=== PATIENT | female | born 1935 | race African-American/Black ===

== ENCOUNTER 2021-05-05 18:51 | Inpatient (IN) | payer BC, MEDICARE ==
[~2021-05-05] VITALS: Ht 170.2 cm; Wt 57.6 kg
[2021-05-05 19:24] LABS: EOSINOPHILS % 1.6 % (0.0-5.0); HEMATOCRIT. 32.8 % (36.0-48.0); HEMOGLOBIN. 11.6 g/dL (12.0-16.0); LYMPHOCYTES % 26.2 % (20.0-50.0); MEAN CORPUSCULAR HEMOGLOBIN 33.4 pg (28.0-32.0); MEAN CORPUSCULAR VOLUME 94.8 fL (81.0-99.0); MEAN PLATELET VOLUME 9.9 fl (7.4-10.4); MONOCYTES % 9.8 % (2.0-8.0); NEUTROPHILS % 59.4 % (40.0-76.0); PLATELET 412 x1000/uL (130-400); RED BLOOD CELL COUNT 3.46 mill/uL (4.2-5.4)
[2021-05-05 21:12] LABS: CHLORIDE 109 mEq/L (98-107)
[2021-05-05 21:13] LABS: PROTHROMBIN TIME 10.6 sec (9.6-11.0)
[2021-05-05] MEDS ORDERED: ASPIRIN 325MG EC TABLET PO ONE (21:15)
[2021-05-05 21:18] LABS: LDL CHOLESTEROL 147 mg/dL (5-100)
[2021-05-05] MEDS ORDERED: IOHEXOL-350 100 ML BOTTLE ONE (22:14)
[2021-05-06] VITALS (8 sets, daily range): BP systolic 97–147; BP diastolic 54–78
[2021-05-06] MEDS ORDERED: ZOLPIDEM TARTRATE 5MG TABLET PO PRN
[2021-05-06] MEDS ORDERED: NITROGLYCERIN 0.4MG TABLET SL SL PRN
[2021-05-06] MEDS ORDERED: ACETAMINOPHEN 325MG TABLET PO PRN ×2
[2021-05-06] MEDS ORDERED: CLONIDINE 0.1MG TABLET PO PRN
[2021-05-06] MEDS ORDERED: TRAMADOL 50MG TABLET PO PRN
[2021-05-06] MEDS ORDERED: IPRATROPIUM/ALBUTEROL 0.5-3(2.5)MG/3ML NEB NEB PRN
[2021-05-06] MEDS ORDERED: DOCUSATE SODIUM 100MG CAPSULE PO PRN
[2021-05-06] MEDS ORDERED: GUAIFENESIN 200MG/10ML SUGAR FREE UDC PO PRN
[2021-05-06] MEDS ORDERED: ONDANSETRON HCL 4MG/2ML INJ IV PRN
[2021-05-06] MEDS ORDERED: MAGNESIUM/ALUMINUM HYDROXIDE/SIMETHICONE 30ML UDC PO PRN
[2021-05-06 00:35] LABS: T4 FREE 0.86 ng/dL (0.76-1.46)
[2021-05-06 01:08] LABS: FOLIC ACID (FOLATE) SERUM >20 ng/mL ng/mL (>5.38)
[2021-05-06 01:25] LABS: VITAMIN B12 SERUM 1567 pg/mL (211-911)
[2021-05-06] MEDS ORDERED: XALAO EACHEYE (06:00)
[2021-05-06] MEDS ORDERED: BRIM.2 EACHEYE (06:00)
[2021-05-06] MEDS ORDERED: DORZ10DR8 EACHEYE (06:00)
[2021-05-06 06:52] LABS: EOSINOPHILS % 2.2 % (0.0-5.0); HEMOGLOBIN. 11.1 g/dL (12.0-16.0); MEAN CORPUSCULAR HEMOGLOBIN 33.4 pg (28.0-32.0); MEAN CORPUSCULAR VOLUME 96.7 fL (81.0-99.0); MEAN PLATELET VOLUME 9.7 fl (7.4-10.4); MONOCYTES % 10.1 % (2.0-8.0); NEUTROPHILS % 53.7 % (40.0-76.0); PLATELET 238 x1000/uL (130-400); RED BLOOD CELL COUNT 3.31 mill/uL (4.2-5.4); RED CELL DISTRIBUTION WIDTH 15.8 % (11.6-14.6)
[2021-05-06] MEDS: BLOOD SUGAR DIAGNOSTIC STRIP TEST SCH ×4 (07:20→21:10)
[2021-05-06 07:42] LABS: CHLORIDE 109 mEq/L (98-107)
[2021-05-06 07:55] LABS: CREATINE KINASE 101 IU/L (26-192); CREATINE KINASE MB FRACTION 1.3 ng/mL (0.5-3.6); PHOSPHORUS 3.7 mg/dL (2.5-4.9)
[2021-05-06 08:19] LABS: PROTHROMBIN TIME 10.8 sec (9.6-11.0)
[2021-05-06 08:59] LABS: BG BASE EXCESS 2.7 mmol/L (-2.0-2.0); BG CARBOXYHEMOGLOBIN 0.3 % (0.5-1.5); BG DEOXYHEMOGLOBIN 2.3 % (0.0-5.0); BG FRACTION INSPIRED OXYGEN 21; BG HCO3 ACT 27.1 mmol/L (22.0-26.0); BG METHEMOGLOBIN 0.3 % (0.0-1.5); BG OXYGEN SATURATION 97.7 % (92.0-98.5); BG OXYHEMOGLOBIN 97.1 % (94.0-97.0); BG PCO2 41.2 mmHg (35.0-45.0); BG PH 7.436 (7.350-7.450); BG PO2 109.4 mmHg (75.0-100.0); BG SAMPLE SITE LEFT RADIAL; BG TOTAL HEMOGLOBIN 10.7 g/dL (12.0-18.0); BG VENT MODE ROOM AIR
[2021-05-06 09:08] LABS: LDL CHOLESTEROL 138 mg/dL (5-100)
[2021-05-06 09:09] LABS: HDL CHOLESTEROL 48 mg/dL (40-59)
[2021-05-06] MEDS: ASPIRIN 325MG EC TABLET PO SCH (10:02)
[2021-05-06] MEDS: ENOXAPARIN 40MG/0.4ML SYR SUBCUT SCH (10:02)
[2021-05-06] MEDS: FAMOTIDINE 20MG TABLET PO SCH (10:04)
[2021-05-06] MEDS: KETOROLAC 15MG/ML VIAL IV PRN ×2 (10:04→10:23)
[2021-05-06 16:47] LABS: CREATINE KINASE 111 IU/L (26-192)
[2021-05-06 16:48] LABS: CREATINE KINASE MB FRACTION 1.5 ng/mL (0.5-3.6)
[2021-05-07] VITALS: BP 129/62
[2021-05-07 04:00] VITALS: BP 136/74
[2021-05-07] MEDS: BLOOD SUGAR DIAGNOSTIC STRIP TEST SCH ×3 (07:20→20:34)
[2021-05-07 07:51] VITALS: BP 111/53
[2021-05-07] MEDS: FAMOTIDINE 20MG TABLET PO SCH (09:03)
[2021-05-07] MEDS: ASPIRIN 325MG EC TABLET PO SCH (09:03)
[2021-05-07] MEDS: ENOXAPARIN 40MG/0.4ML SYR SUBCUT SCH (09:04)
[2021-05-07] MEDS: EZETIMIBE 10MG TABLET PO SCH (14:33)
[2021-05-07 20:14] VITALS: BP 151/73
[2021-05-08 00:22] VITALS: BP 127/61
[2021-05-08 04:00] VITALS: BP 144/49
[2021-05-08] MEDS: BLOOD SUGAR DIAGNOSTIC STRIP TEST SCH (06:25)
[2021-05-08 08:00] VITALS: BP 133/61
[2021-05-08 08:04] LABS: BG BASE EXCESS 4.2 mmol/L (-2.0-2.0); BG CARBOXYHEMOGLOBIN 0.3 % (0.5-1.5); BG DEOXYHEMOGLOBIN 2.6 % (0.0-5.0); BG FRACTION INSPIRED OXYGEN 21; BG HCO3 ACT 28.5 mmol/L (22.0-26.0); BG METHEMOGLOBIN 0.1 % (0.0-1.5); BG OXYGEN SATURATION 97.4 % (92.0-98.5); BG PCO2 41.6 mmHg (35.0-45.0); BG PH 7.454 (7.350-7.450); BG PO2 97.9 mmHg (75.0-100.0); BG SAMPLE SITE RIGHT RADIAL; BG VENT MODE ROOM AIR
[2021-05-08] MEDS: ENOXAPARIN 40MG/0.4ML SYR SUBCUT SCH (09:27)
[2021-05-08] MEDS: ASPIRIN 325MG EC TABLET PO SCH (09:27)
[2021-05-08] MEDS: FAMOTIDINE 20MG TABLET PO SCH (09:27)
[2021-05-08] MEDS: EZETIMIBE 10MG TABLET PO SCH (09:27)
== END 2021-05-08 11:40 | disposition home or self-care (01) | DRG 65 ==
LOC: ER 18:51 → 6WST 23:15 → ENRESERV 23:38 → SUPCPDRO 23:56
PROVIDERS: ADMIT Internal Medicine; ATTEND Internal Medicine
DX: I63.9 Cerebral infarction, unspecified (principal); G81.94 Hemiplegia, unspecified affecting left nondominant side; D63.8 Anemia in other chronic diseases classified elsewhere; I10 Essential (primary) hypertension; Z90.710 Acquired absence of both cervix and uterus; Z95.1 Presence of aortocoronary bypass graft; I25.2 Old myocardial infarction; Z79.899 Other long term (current) drug therapy; E78.00 Pure hypercholesterolemia, unspecified
CPT/HCPCS: 36415; 36600; 70496; 70498; 70544; 70551; 71045; 80053; 80061; 82375; 82550; 82553; 82607; 82746; 82805; 82962; 83036; 83540; 83550; 83721; 83735; 84100; 84439; 84443; 84484; 85025; 85384; 92523; 93005; 93306; 97162; 97166; 97535; 99291; J1650; J1885; Q9967

== ENCOUNTER 2021-08-01 21:41 | Inpatient (IN) | payer MEDICARE ==
[~2021-08-01] VITALS: Ht 165.1 cm; Wt 56.9 kg
[~2021-08-01 21:41] MED LIST: BRIM.2 EACHEYE; CLOP-31 MT; DORZ10DR8 EACHEYE; EZET10TA13 MT; FAMO20TA8 MT; XALAO EACHEYE
[2021-08-01] MEDS ORDERED: SODIUM CHLORIDE 0.9% 1,000 ML IV ONE (23:00)
[2021-08-01 23:31] LABS: HEMATOCRIT. 34.3 % (36.0-48.0); HEMOGLOBIN. 11.9 g/dL (12.0-16.0); MEAN CORPUSCULAR HEMOGLOBIN 31.8 pg (28.0-32.0); MEAN PLATELET VOLUME 8.6 fl (7.4-10.4); PLATELET 284 x1000/uL (130-400); RED BLOOD CELL COUNT 3.73 mill/uL (4.2-5.4); RED CELL DISTRIBUTION WIDTH 15.4 % (11.6-14.6)
[2021-08-01 23:35] LABS: CHLORIDE 100 mEq/L (98-107)
[2021-08-02 03:08] LABS: CLARITY URINE CLEAR (CLEAR); COLOR URINE YELLOW (YELLOW); KETONES URINE NEGATIVE (NEGATIVE); LEUKOCYTE ESTERASE URINE NEGATIVE (NEGATIVE); NITRITE URINE NEGATIVE (NEGATIVE); OCCULT BLOOD URINE TRACE (NEGATIVE); PROTEIN URINE 1+ (NEGATIVE); SPECIFIC GRAVITY URINE 1.019 (1.005-1.030); UROBILINOGEN URINE 0.2 E.U./dL (0.2-1.0)
[2021-08-02] MEDS ORDERED: ONDANSETRON HCL 4MG/2ML INJ IV PRN (08:30)
[2021-08-02] MEDS ORDERED: DIPHENHYDRAMINE 50MG/ML VIAL IV PRN (08:30)
[2021-08-02] MEDS ORDERED: CLONIDINE 0.1MG TABLET PO PRN (08:30)
[2021-08-02] MEDS ORDERED: IPRATROPIUM/ALBUTEROL 0.5-3(2.5)MG/3ML NEB HHN PRN (08:30)
[2021-08-02] MEDS ORDERED: GUAIFENESIN 200MG/10ML SUGAR FREE UDC PO PRN (08:30)
[2021-08-02] MEDS ORDERED: MORPHINE SULFATE 2 MG/ML CPJ (NOT FOR IM USE) IV PRN (08:30)
[2021-08-02] MEDS ORDERED: HYDRALAZINE 20MG/ML VIAL IV PRN (08:30)
[2021-08-02] MEDS ORDERED: HYDROCODONE/ACETAMINOPHEN 5/325MG TABLET PO PRN (08:30)
[2021-08-02] MEDS ORDERED: LORAZEPAM 2MG/ML CPJ IV PRN (08:30)
[2021-08-02] MEDS ORDERED: DOCUSATE SODIUM 100MG CAPSULE PO PRN (08:30)
[2021-08-02] MEDS ORDERED: ACETAMINOPHEN 325MG TABLET PO PRN (08:30)
[2021-08-02] MEDS ORDERED: MAGNESIUM/ALUMINUM HYDROXIDE/SIMETHICONE 30ML UDC PO PRN (08:30)
[2021-08-02] MEDS ORDERED: NALOXONE HCL 0.4MG/ML VIAL IV PRN (08:45)
[2021-08-02 09:07] LABS: PLATELET ESTIMATE NORMAL
[2021-08-02 10:10] VITALS: BP 131/70
[2021-08-02] MEDS: ENOXAPARIN 40MG/0.4ML SYR SUBCUT SCH (10:55)
[2021-08-02 12:00] VITALS: BP 152/64
[2021-08-02] MEDS: SODIUM CHLORIDE 0.9% INJ 3ML FLUSH IVF SCH ×2 (14:10→20:54)
[2021-08-02 16:00] VITALS: BP 121/59
[2021-08-02] MEDS ORDERED: PNEUMOCOCCAL 23-VAL P-SAC VAC 0.5 ML IM ONE (16:00)
[2021-08-02 16:04] LABS: CREATINE KINASE 167 IU/L (26-192)
[2021-08-02 20:00] VITALS: BP 127/60
[2021-08-03] VITALS (8 sets, daily range): BP systolic 98–132; BP diastolic 49–67
[2021-08-03 00:38] LABS: CREATINE KINASE 133 IU/L (26-192)
[2021-08-03 00:40] LABS: CREATINE KINASE MB FRACTION 1.2 ng/mL (0.5-3.6)
[2021-08-03 06:04] LABS: HEMATOCRIT. 33.5 % (36.0-48.0); HEMOGLOBIN. 11.1 g/dL (12.0-16.0); MEAN CORPUSCULAR HEMOGLOBIN 31.7 pg (28.0-32.0); MEAN CORPUSCULAR VOLUME 95.6 fL (81.0-99.0); MEAN PLATELET VOLUME 9.7 fl (7.4-10.4); PLATELET 275 x1000/uL (130-400); RED BLOOD CELL COUNT 3.51 mill/uL (4.2-5.4); RED CELL DISTRIBUTION WIDTH 15.8 % (11.6-14.6)
[2021-08-03] MEDS: SODIUM CHLORIDE 0.9% INJ 3ML FLUSH IVF SCH ×3 (06:22→21:22)
[2021-08-03 06:44] LABS: CHLORIDE 105 mEq/L (98-107)
[2021-08-03] MEDS: ENOXAPARIN 40MG/0.4ML SYR SUBCUT SCH (09:30)
[2021-08-03] MEDS: ASPIRIN 81MG TABLET PO SCH (14:15)
[2021-08-03] MEDS: ATORVASTATIN CALCIUM 10MG TABLET PO SCH (21:00)
[2021-08-03 21:40] LABS: PLATELET ESTIMATE NORMAL
[2021-08-04] VITALS: BP 121/51
[2021-08-04 04:00] VITALS: BP 136/60
[2021-08-04] MEDS: SODIUM CHLORIDE 0.9% INJ 3ML FLUSH IVF SCH ×3 (06:21→21:47)
[2021-08-04 06:59] LABS: HEMATOCRIT. 30.5 % (36.0-48.0); HEMOGLOBIN. 10.4 g/dL (12.0-16.0); MEAN CORPUSCULAR HEMOGLOBIN 31.8 pg (28.0-32.0); MEAN CORPUSCULAR VOLUME 93.4 fL (81.0-99.0); PLATELET 293 x1000/uL (130-400); RED BLOOD CELL COUNT 3.26 mill/uL (4.2-5.4); RED CELL DISTRIBUTION WIDTH 15.4 % (11.6-14.6)
[2021-08-04 07:00] LABS: CHLORIDE 106 mEq/L (98-107)
[2021-08-04 08:02] VITALS: BP_SYST 112; BP_SYST 125; BP_SYST 150; BP_DIAS 61; BP_DIAS 68; BP_DIAS 73
[2021-08-04] MEDS: ASPIRIN 81MG TABLET PO SCH (08:12)
[2021-08-04] MEDS: ENOXAPARIN 30MG/0.3ML SYR SUBCUT SCH (08:13)
[2021-08-04 11:08] VITALS: BP 113/50
[2021-08-04 13:36] LABS: PLATELET ESTIMATE NORMAL
[2021-08-04 15:40] VITALS: BP 121/58
[2021-08-04 20:00] VITALS: BP 133/60
[2021-08-04] MEDS: ATORVASTATIN CALCIUM 10MG TABLET PO SCH (21:00)
[2021-08-05] VITALS (11 sets, daily range): BP systolic 111–146; BP diastolic 49–75
[2021-08-05] MEDS: SODIUM CHLORIDE 0.9% INJ 3ML FLUSH IVF SCH ×3 (06:11→21:55)
[2021-08-05] MEDS: ASPIRIN 81MG TABLET PO SCH (09:00)
[2021-08-05] MEDS: ENOXAPARIN 30MG/0.3ML SYR SUBCUT SCH (09:48)
[2021-08-05 09:49] LABS: BASOPHILS % 1.3 % (0.0-2.0); EOSINOPHILS % 1.4 % (0.0-5.0); HEMATOCRIT. 33.8 % (36.0-48.0); HEMOGLOBIN. 11.4 g/dL (12.0-16.0); LYMPHOCYTES % 22.5 % (20.0-50.0); MEAN CORPUSCULAR HEMOGLOBIN 32.3 pg (28.0-32.0); MEAN CORPUSCULAR VOLUME 95.9 fL (81.0-99.0); MEAN PLATELET VOLUME 8.7 fl (7.4-10.4); MONOCYTES % 12.1 % (2.0-8.0); NEUTROPHILS % 62.7 % (40.0-76.0); PLATELET 319 x1000/uL (130-400); RED BLOOD CELL COUNT 3.52 mill/uL (4.2-5.4)
[2021-08-05 10:14] LABS: CHLORIDE 104 mEq/L (98-107)
[2021-08-05] MEDS: ATORVASTATIN CALCIUM 10MG TABLET PO SCH (20:27)
[2021-08-06] VITALS: BP 114/61
[2021-08-06 04:00] VITALS: BP 114/67
[2021-08-06] MEDS: SODIUM CHLORIDE 0.9% INJ 3ML FLUSH IVF SCH ×3 (05:52→21:16)
[2021-08-06 08:00] VITALS: BP 130/64
[2021-08-06] MEDS: ASPIRIN 81MG TABLET PO SCH (09:44)
[2021-08-06] MEDS: ENOXAPARIN 30MG/0.3ML SYR SUBCUT SCH (09:44)
[2021-08-06 16:00] VITALS: BP 120/64
[2021-08-06] MEDS: DICLOFENAC SODIUM 75MG DR (EC) TABLET PO SCH (18:09)
[2021-08-06] MEDS: ALPRAZOLAM 0.25 MG TABLET PO SCH ×2 (18:09→21:16)
[2021-08-06 20:00] VITALS: BP 103/57
[2021-08-06] MEDS: ATORVASTATIN CALCIUM 10MG TABLET PO SCH ×2 (21:00→21:16)
[2021-08-06] MEDS: HYDROCORTISONE SOD SUCCINATE 100 MG/2 ML VIAL IV SCH (21:16)
[2021-08-07] VITALS (8 sets, daily range): BP systolic 96–123; BP diastolic 41–75
[2021-08-07] MEDS: SODIUM CHLORIDE 0.9% INJ 3ML FLUSH IVF SCH ×3 (06:56→21:42)
[2021-08-07] MEDS: HYDROCORTISONE SOD SUCCINATE 100 MG/2 ML VIAL IV SCH ×3 (06:56→21:42)
[2021-08-07] MEDS: ALPRAZOLAM 0.25 MG TABLET PO SCH ×3 (06:56→21:42)
[2021-08-07] MEDS: DICLOFENAC SODIUM 75MG DR (EC) TABLET PO SCH (08:48)
[2021-08-07] MEDS: ASPIRIN 81MG TABLET PO SCH (08:48)
[2021-08-07] MEDS: ENOXAPARIN 30MG/0.3ML SYR SUBCUT SCH (08:49)
[2021-08-07] MEDS: ATORVASTATIN CALCIUM 10MG TABLET PO SCH (21:00)
[2021-08-08] VITALS (9 sets, daily range): BP systolic 99–135; BP diastolic 49–70
[2021-08-08 06:01] LABS: FOLIC ACID (FOLATE) SERUM 11.5 ng/mL (>5.38)
[2021-08-08] MEDS: ALPRAZOLAM 0.25 MG TABLET PO SCH ×3 (06:03→21:28)
[2021-08-08] MEDS: HYDROCORTISONE SOD SUCCINATE 100 MG/2 ML VIAL IV SCH ×3 (06:03→21:29)
[2021-08-08] MEDS: SODIUM CHLORIDE 0.9% INJ 3ML FLUSH IVF SCH ×3 (06:03→21:30)
[2021-08-08] MEDS: ASPIRIN 81MG TABLET PO SCH (09:22)
[2021-08-08] MEDS: DICLOFENAC SODIUM 75MG DR (EC) TABLET PO SCH (09:22)
[2021-08-08] MEDS: ENOXAPARIN 30MG/0.3ML SYR SUBCUT SCH (09:23)
[2021-08-08] MEDS: ATORVASTATIN CALCIUM 10MG TABLET PO SCH (21:00)
[2021-08-09] VITALS (8 sets, daily range): BP systolic 103–145; BP diastolic 47–77
[2021-08-09] MEDS: SODIUM CHLORIDE 0.9% INJ 3ML FLUSH IVF SCH ×3 (05:10→21:46)
[2021-08-09] MEDS: ALPRAZOLAM 0.25 MG TABLET PO SCH ×3 (05:10→21:46)
[2021-08-09] MEDS: HYDROCORTISONE SOD SUCCINATE 100 MG/2 ML VIAL IV SCH ×3 (05:10→21:46)
[2021-08-09] MEDS: ASPIRIN 81MG TABLET PO SCH (08:58)
[2021-08-09] MEDS: ENOXAPARIN 30MG/0.3ML SYR SUBCUT SCH (08:58)
[2021-08-09] MEDS: DICLOFENAC SODIUM 75MG DR (EC) TABLET PO SCH (08:58)
[2021-08-09] MEDS: ATORVASTATIN CALCIUM 10MG TABLET PO SCH (21:00)
[2021-08-10] VITALS (8 sets, daily range): BP systolic 107–135; BP diastolic 52–75
[2021-08-10] MEDS: HYDROCORTISONE SOD SUCCINATE 100 MG/2 ML VIAL IV SCH ×4 (05:46→21:25)
[2021-08-10] MEDS: SODIUM CHLORIDE 0.9% INJ 3ML FLUSH IVF SCH ×3 (05:47→21:26)
[2021-08-10] MEDS: ALPRAZOLAM 0.25 MG TABLET PO SCH (05:48)
[2021-08-10] MEDS: DICLOFENAC SODIUM 75MG DR (EC) TABLET PO SCH ×2 (08:29→09:32)
[2021-08-10] MEDS: ASPIRIN 81MG TABLET PO SCH (08:29)
[2021-08-10] MEDS: ENOXAPARIN 30MG/0.3ML SYR SUBCUT SCH (08:30)
[2021-08-10 09:44] LABS: BASOPHILS % 0.4 % (0.0-2.0); HEMATOCRIT. 33.4 % (36.0-48.0); HEMOGLOBIN. 11.5 g/dL (12.0-16.0); LYMPHOCYTES % 7.5 % (20.0-50.0); MEAN CORPUSCULAR HEMOGLOBIN 32.3 pg (28.0-32.0); MEAN CORPUSCULAR VOLUME 93.8 fL (81.0-99.0); MEAN PLATELET VOLUME 8.7 fl (7.4-10.4); MONOCYTES % 4.1 % (2.0-8.0); PLATELET 530 x1000/uL (130-400); RED BLOOD CELL COUNT 3.56 mill/uL (4.2-5.4); RED CELL DISTRIBUTION WIDTH 15.9 % (11.6-14.6)
[2021-08-10 09:56] LABS: CHLORIDE 106 mEq/L (98-107)
[2021-08-10] MEDS ORDERED: MED4 MT (17:24)
[2021-08-10] MEDS ORDERED: DICL75TA5 MT (17:24)
[2021-08-10] MEDS: ATORVASTATIN CALCIUM 10MG TABLET PO SCH (21:00)
[2021-08-11] VITALS (8 sets, daily range): BP systolic 101–139; BP diastolic 53–66
[2021-08-11] MEDS: HYDROCORTISONE SOD SUCCINATE 100 MG/2 ML VIAL IV SCH ×2 (05:57→21:32)
[2021-08-11] MEDS: SODIUM CHLORIDE 0.9% INJ 3ML FLUSH IVF SCH ×3 (05:57→21:35)
[2021-08-11] MEDS: DICLOFENAC SODIUM 75MG DR (EC) TABLET PO SCH (09:00)
[2021-08-11] MEDS: ENOXAPARIN 30MG/0.3ML SYR SUBCUT SCH (09:08)
[2021-08-11] MEDS: ASPIRIN 81MG TABLET PO SCH (09:08)
[2021-08-11] MEDS: ATORVASTATIN CALCIUM 10MG TABLET PO SCH (21:00)
[2021-08-11] MEDS: LATANOPROST 0.005% OPHTH DROPS 2.5ML EACHEYE SCH (21:29)
[2021-08-12] VITALS: BP 123/65
[2021-08-12 04:00] VITALS: BP 115/89
[2021-08-12] MEDS: SODIUM CHLORIDE 0.9% INJ 3ML FLUSH IVF SCH ×3 (06:35→21:39)
[2021-08-12 08:00] VITALS: BP 130/60
[2021-08-12] MEDS: DICLOFENAC SODIUM 75MG DR (EC) TABLET PO SCH (09:00)
[2021-08-12] MEDS: ASPIRIN 81MG TABLET PO SCH (09:05)
[2021-08-12] MEDS: HYDROCORTISONE SOD SUCCINATE 100 MG/2 ML VIAL IV SCH ×2 (09:05→21:39)
[2021-08-12] MEDS: BRIMONIDINE 0.2% OPHTH DROPS 5ML EACHEYE SCH ×2 (09:05→16:38)
[2021-08-12] MEDS: DORZOLAMIDE 2% OPHTH 10 ML BOTTLE EACHEYE SCH ×2 (09:05→16:38)
[2021-08-12] MEDS: ENOXAPARIN 30MG/0.3ML SYR SUBCUT SCH (09:06)
[2021-08-12 12:03] VITALS: BP 103/45
[2021-08-12 16:48] VITALS: BP 116/60
[2021-08-12 20:00] VITALS: BP_SYST 121; BP_SYST 130; BP_SYST 92; BP_DIAS 48; BP_DIAS 56; BP_DIAS 65
[2021-08-12] MEDS: ATORVASTATIN CALCIUM 10MG TABLET PO SCH (21:00)
[2021-08-12] MEDS: LATANOPROST 0.005% OPHTH DROPS 2.5ML EACHEYE SCH (21:39)
[2021-08-13] VITALS: BP 136/62
[2021-08-13 04:00] VITALS: BP 145/69
[2021-08-13] MEDS: SODIUM CHLORIDE 0.9% INJ 3ML FLUSH IVF SCH ×3 (06:29→21:51)
[2021-08-13 08:19] VITALS: BP 107/62
[2021-08-13] MEDS: ENOXAPARIN 30MG/0.3ML SYR SUBCUT SCH (08:48)
[2021-08-13] MEDS: ASPIRIN 81MG TABLET PO SCH (08:48)
[2021-08-13] MEDS: BRIMONIDINE 0.2% OPHTH DROPS 5ML EACHEYE SCH ×2 (08:49→16:37)
[2021-08-13] MEDS: DORZOLAMIDE 2% OPHTH 10 ML BOTTLE EACHEYE SCH ×2 (08:49→16:37)
[2021-08-13] MEDS: DICLOFENAC SODIUM 75MG DR (EC) TABLET PO SCH (08:52)
[2021-08-13] MEDS: HYDROCORTISONE SOD SUCCINATE 100 MG/2 ML VIAL IV SCH ×2 (08:52→21:00)
[2021-08-13] MEDS ORDERED: HYDRALAZINE 10 MG in SODIUM CHLORIDE 0.9% 49.5 ML IV PRN (10:45)
[2021-08-13 12:00] VITALS: BP 103/42
[2021-08-13 16:00] VITALS: BP 137/62
[2021-08-13 17:06] LABS: 25-HYDROXY VITAMIN D3 19 ng/mL (.)
[2021-08-13 20:00] VITALS: BP 128/57
[2021-08-13] MEDS: ATORVASTATIN CALCIUM 10MG TABLET PO SCH (21:00)
[2021-08-13] MEDS: LATANOPROST 0.005% OPHTH DROPS 2.5ML EACHEYE SCH (21:49)
[2021-08-14] VITALS: BP 134/62
[2021-08-14 04:00] VITALS: BP 149/74
[2021-08-14] MEDS: SODIUM CHLORIDE 0.9% INJ 3ML FLUSH IVF SCH ×2 (05:52→14:18)
[2021-08-14] MEDS: DICLOFENAC SODIUM 75MG DR (EC) TABLET PO SCH ×2 (09:00→09:46)
[2021-08-14] MEDS: ASPIRIN 81MG TABLET PO SCH (09:46)
[2021-08-14] MEDS: ENOXAPARIN 30MG/0.3ML SYR SUBCUT SCH (09:46)
[2021-08-14] MEDS: LATANOPROST 0.005% OPHTH DROPS 2.5ML EACHEYE SCH ×2 (09:47→21:26)
[2021-08-14] MEDS: DORZOLAMIDE 2% OPHTH 10 ML BOTTLE EACHEYE SCH ×2 (09:47→18:09)
[2021-08-14] MEDS: BRIMONIDINE 0.2% OPHTH DROPS 5ML EACHEYE SCH ×2 (09:47→18:08)
[2021-08-14] MEDS ORDERED: ERGOCALCIFEROL 50000UNITS CAPSULE PO SCH (10:00)
[2021-08-14] MEDS: HYDROCORTISONE SOD SUCCINATE 100 MG/2 ML VIAL IV SCH ×2 (10:14→21:26)
[2021-08-14 20:00] VITALS: BP 133/67
[2021-08-14] MEDS: ATORVASTATIN CALCIUM 10MG TABLET PO SCH (21:00)
[2021-08-14 23:55] VITALS: BP 131/68
[2021-08-15 05:05] VITALS: BP 135/69
[2021-08-15 06:24] LABS: HEMOGLOBIN. 10.8 g/dL (12.0-16.0); MEAN CORPUSCULAR HEMOGLOBIN 31.7 pg (28.0-32.0); MEAN CORPUSCULAR VOLUME 94.1 fL (81.0-99.0); MEAN PLATELET VOLUME 8.4 fl (7.4-10.4); PLATELET 463 x1000/uL (130-400); RED CELL DISTRIBUTION WIDTH 15.8 % (11.6-14.6)
[2021-08-15 06:47] LABS: CHLORIDE 101 mEq/L (98-107)
[2021-08-15 08:00] VITALS: BP 142/63
[2021-08-15] MEDS: ASPIRIN 81MG TABLET PO SCH (09:27)
[2021-08-15] MEDS: ENOXAPARIN 30MG/0.3ML SYR SUBCUT SCH (09:27)
[2021-08-15] MEDS: HYDROCORTISONE SOD SUCCINATE 100 MG/2 ML VIAL IV SCH ×2 (09:27→22:10)
[2021-08-15] MEDS: BRIMONIDINE 0.2% OPHTH DROPS 5ML EACHEYE SCH ×2 (09:28→17:13)
[2021-08-15] MEDS: DORZOLAMIDE 2% OPHTH 10 ML BOTTLE EACHEYE SCH ×2 (09:28→17:12)
[2021-08-15 12:00] VITALS: BP 94/51
[2021-08-15 13:35] LABS: PLATELET ESTIMATE INCREASED
[2021-08-15 16:00] VITALS: BP 124/64
[2021-08-15 20:00] VITALS: BP 103/49
[2021-08-15] MEDS: ATORVASTATIN CALCIUM 10MG TABLET PO SCH (21:00)
[2021-08-15] MEDS: LATANOPROST 0.005% OPHTH DROPS 2.5ML EACHEYE SCH (22:10)
[2021-08-15] MEDS: SODIUM CHLORIDE 0.9% INJ 3ML FLUSH IVF SCH (22:11)
[2021-08-16] VITALS: BP 134/60
[2021-08-16 04:00] VITALS: BP 135/62
[2021-08-16] MEDS: SODIUM CHLORIDE 0.9% INJ 3ML FLUSH IVF SCH ×3 (06:35→21:04)
[2021-08-16 08:00] VITALS: BP 154/72
[2021-08-16] MEDS: ASPIRIN 81MG TABLET PO SCH (09:29)
[2021-08-16] MEDS: DORZOLAMIDE 2% OPHTH 10 ML BOTTLE EACHEYE SCH ×2 (09:29→17:27)
[2021-08-16] MEDS: ENOXAPARIN 30MG/0.3ML SYR SUBCUT SCH (09:32)
[2021-08-16] MEDS: HYDROCORTISONE SOD SUCCINATE 100 MG/2 ML VIAL IV SCH ×2 (09:32→21:05)
[2021-08-16] MEDS: BRIMONIDINE 0.2% OPHTH DROPS 5ML EACHEYE SCH ×2 (09:32→17:26)
[2021-08-16 12:00] VITALS: BP 111/58
[2021-08-16 16:00] VITALS: BP 101/48
[2021-08-16 20:00] VITALS: BP 120/53
[2021-08-16] MEDS: ATORVASTATIN CALCIUM 10MG TABLET PO SCH (21:00)
[2021-08-16] MEDS: LATANOPROST 0.005% OPHTH DROPS 2.5ML EACHEYE SCH (21:04)
[2021-08-17] VITALS: BP 121/62
[2021-08-17 04:00] VITALS: BP 123/63
[2021-08-17] MEDS: SODIUM CHLORIDE 0.9% INJ 3ML FLUSH IVF SCH ×3 (05:23→21:21)
[2021-08-17 08:00] VITALS: BP 154/72
[2021-08-17] MEDS: ASPIRIN 81MG TABLET PO SCH (09:07)
[2021-08-17] MEDS: HYDROCORTISONE SOD SUCCINATE 100 MG/2 ML VIAL IV SCH (09:07)
[2021-08-17] MEDS: DORZOLAMIDE 2% OPHTH 10 ML BOTTLE EACHEYE SCH ×2 (09:07→17:57)
[2021-08-17] MEDS: BRIMONIDINE 0.2% OPHTH DROPS 5ML EACHEYE SCH ×2 (09:07→17:57)
[2021-08-17] MEDS: ENOXAPARIN 30MG/0.3ML SYR SUBCUT SCH (09:08)
[2021-08-17 12:00] VITALS: BP 105/55
[2021-08-17 16:00] VITALS: BP 125/58
[2021-08-17 20:00] VITALS: BP 100/52
[2021-08-17] MEDS: ATORVASTATIN CALCIUM 10MG TABLET PO SCH (21:00)
[2021-08-17] MEDS: LATANOPROST 0.005% OPHTH DROPS 2.5ML EACHEYE SCH (21:21)
[2021-08-18] VITALS: BP 106/60
[2021-08-18 04:00] VITALS: BP 141/68
[2021-08-18] MEDS: SODIUM CHLORIDE 0.9% INJ 3ML FLUSH IVF SCH ×2 (05:24→14:00)
[2021-08-18 08:00] VITALS: BP 133/62
[2021-08-18] MEDS: ASPIRIN 81MG TABLET PO SCH (10:00)
[2021-08-18] MEDS: ENOXAPARIN 30MG/0.3ML SYR SUBCUT SCH (10:00)
[2021-08-18] MEDS: BRIMONIDINE 0.2% OPHTH DROPS 5ML EACHEYE SCH ×2 (10:01→17:00)
[2021-08-18] MEDS: DORZOLAMIDE 2% OPHTH 10 ML BOTTLE EACHEYE SCH ×2 (10:01→17:00)
[2021-08-18 12:00] VITALS: BP 97/49
[2021-08-18 16:00] VITALS: BP 100/52
[2021-08-18 20:00] VITALS: BP 117/68
== END 2021-08-18 20:50 | DRG 315 ==
LOC: ER 21:41 → MICUSO 08-02 06:09 → 6WST 08-02 08:45 → 6EST 08-13 10:30
PROVIDERS: ADMIT Internal Medicine; ATTEND Internal Medicine
DX: I95.9 Hypotension, unspecified (principal); E87.1 Hypo-osmolality and hyponatremia; E44.1 Mild protein-calorie malnutrition; I69.354 Hemiplegia and hemiparesis following cerebral infarction affecting left non-dominant side; G90.8 Other disorders of autonomic nervous system; I25.10 Atherosclerotic heart disease of native coronary artery without angina pectoris; I27.20 Pulmonary hypertension, unspecified; J44.9 Chronic obstructive pulmonary disease, unspecified; D64.9 Anemia, unspecified; I11.0 Hypertensive heart disease with heart failure; I50.9 Heart failure, unspecified; E86.0 Dehydration; Z20.822 Contact with and (suspected) exposure to COVID-19; I25.5 Ischemic cardiomyopathy; I34.0 Nonrheumatic mitral (valve) insufficiency; R26.9 Unspecified abnormalities of gait and mobility; R53.81 Other malaise; M47.816 Spondylosis without myelopathy or radiculopathy, lumbar region; M48.02 Spinal stenosis, cervical region; M47.812 Spondylosis without myelopathy or radiculopathy, cervical region; E55.9 Vitamin D deficiency, unspecified; Z60.2 Problems related to living alone; M48.061 Spinal stenosis, lumbar region without neurogenic claudication; Z82.49 Family history of ischemic heart disease and other diseases of the circulatory system; Z95.1 Presence of aortocoronary bypass graft; Z95.5 Presence of coronary angioplasty implant and graft; Z79.899 Other long term (current) drug therapy; Z90.710 Acquired absence of both cervix and uterus; Z68.20 Body mass index [BMI] 20.0-20.9, adult; T46.5X5A Adverse effect of other antihypertensive drugs, initial encounter
CPT/HCPCS: 36415; 70551; 71045; 72141; 72148; 80048; 80053; 81003; 82306; 82550; 82553; 82607; 82746; 83605; 83735; 84443; 84484; 84550; 85025; 87426; 90732; 93005; 93880; 97110; 97116; 97162; 97166; 97530; 97535; 99285; J1650; J1720; J7030

== ENCOUNTER 2021-09-16 17:23 | Emergency (ER) | payer MEDICARE ==
[~2021-09-16] VITALS: Ht 157.5 cm; Wt 59.0 kg
[~2021-09-16 17:23] MED LIST changes: +DICL75TA5 MT; +MED4 MT
[2021-09-16] MEDS ORDERED: IBUPROFEN 600MG TABLET PO ONE (18:30)
[2021-09-16] MEDS ORDERED: ACETAMINOPHEN 325MG TABLET PO ONE (19:30)
[2021-09-17 01:30] VITALS: BP 125/68
== END 2021-09-17 01:53 ==
LOC: ER 17:23
DX: M79.642 Pain in left hand (principal); R05.9 Cough, unspecified; I11.0 Hypertensive heart disease with heart failure; I50.9 Heart failure, unspecified; J44.1 Chronic obstructive pulmonary disease with (acute) exacerbation; Z20.822 Contact with and (suspected) exposure to COVID-19; Z79.899 Other long term (current) drug therapy; Z98.890 Other specified postprocedural states; Z86.73 Personal history of transient ischemic attack (TIA), and cerebral infarction without residual deficits
CPT/HCPCS: 71045; 73130; 87426; 99285

== ENCOUNTER 2022-12-11 11:47 | Inpatient (IN) | payer MEDICARE ==
[~2022-12-11] VITALS: Ht 160 cm; Wt 54.7 kg
[2022-12-11 14:33] LABS: BASOPHILS % 0.9 % (0.0-2.0); EOSINOPHILS % 0.7 % (0.0-5.0); HEMATOCRIT. 34.4 % (36.0-48.0); HEMOGLOBIN. 11.3 g/dL (12.0-16.0); LYMPHOCYTES % 15.6 % (20.0-50.0); MEAN CORPUSCULAR HEMOGLOBIN 31.7 pg (28.0-32.0); MEAN CORPUSCULAR VOLUME 96.5 fL (81.0-99.0); MEAN PLATELET VOLUME 9.1 fl (7.4-10.4); MONOCYTES % 6.4 % (2.0-8.0); NEUTROPHILS % 76.4 % (40.0-76.0); PLATELET 268 x1000/uL (130-400); RED BLOOD CELL COUNT 3.57 mill/uL (4.2-5.4); RED CELL DISTRIBUTION WIDTH 18.6 % (11.6-14.6)
[2022-12-11 14:35] LABS: CHLORIDE 108 mEq/L (98-107)
[2022-12-11] MEDS ORDERED: ALBUTEROL (0.083%) 2.5MG/3ML NEB HHN PRN (17:30)
[2022-12-11 18:29] LABS: CLARITY URINE CLEAR (CLEAR); COLOR URINE YELLOW (YELLOW); KETONES URINE NEGATIVE (NEGATIVE); LEUKOCYTE ESTERASE URINE 1+ (NEGATIVE); NITRITE URINE NEGATIVE (NEGATIVE); OCCULT BLOOD URINE NEGATIVE (NEGATIVE); PH URINE 6.5 (4.5-8.0); PROTEIN URINE NEGATIVE (NEGATIVE); SPECIFIC GRAVITY URINE 1.019 (1.005-1.030)
[2022-12-11] MEDS ORDERED: CEFTRIAXONE 1 G PREMIX 50 ML IV ONE (19:30)
[2022-12-12] MEDS ORDERED: DOCUSATE SODIUM 100MG CAPSULE PO PRN (02:30)
[2022-12-12] MEDS ORDERED: ONDANSETRON HCL 4MG/2ML INJ IV PRN (02:30)
[2022-12-12] MEDS ORDERED: ACETAMINOPHEN 325MG TABLET PO PRN ×2 (02:30)
[2022-12-12] MEDS ORDERED: MAGNESIUM/ALUMINUM HYDROXIDE/SIMETHICONE 30ML UDC PO PRN (02:30)
[2022-12-12] MEDS ORDERED: GUAIFENESIN 200MG/10ML SUGAR FREE UDC PO PRN (02:30)
[2022-12-12] MEDS ORDERED: CLOP75TA33 PO (02:54)
[2022-12-12] MEDS ORDERED: SIMV10TA97 PO (02:54)
[2022-12-12 04:09] LABS: BASOPHILS % 1.3 % (0.0-2.0); EOSINOPHILS % 3.3 % (0.0-5.0); HEMOGLOBIN. 10.1 g/dL (12.0-16.0); LYMPHOCYTES % 30.6 % (20.0-50.0); MEAN CORPUSCULAR HEMOGLOBIN 32.3 pg (28.0-32.0); MEAN CORPUSCULAR VOLUME 96.2 fL (81.0-99.0); MEAN PLATELET VOLUME 8.8 fl (7.4-10.4); MONOCYTES % 11.1 % (2.0-8.0); NEUTROPHILS % 53.7 % (40.0-76.0); PLATELET 242 x1000/uL (130-400); RED BLOOD CELL COUNT 3.12 mill/uL (4.2-5.4); RED CELL DISTRIBUTION WIDTH 18.6 % (11.6-14.6)
[2022-12-12 04:17] LABS: CHLORIDE 95 mEq/L (98-107)
[2022-12-12 04:24] LABS: HDL CHOLESTEROL 57 mg/dL (40-59); LDL CHOLESTEROL 86 mg/dL (5-100)
[2022-12-12] MEDS: DORZOLAMIDE 2% OPHTH 10 ML BOTTLE BOTHEYE SCH ×2 (09:50→17:00)
[2022-12-12] MEDS: FAMOTIDINE 20MG TABLET PO SCH (09:50)
[2022-12-12] MEDS: EZETIMIBE 10MG TABLET PO SCH (09:50)
[2022-12-12] MEDS: BRIMONIDINE 0.2% OPHTH DROPS 5ML EACHEYE SCH ×2 (09:50→17:00)
[2022-12-12] MEDS: CLOPIDOGREL 75MG TABLET PO SCH (09:51)
[2022-12-12] MEDS: ENOXAPARIN 40MG/0.4ML SYR SUBCUT SCH (09:51)
[2022-12-12] MEDS: SODIUM CHLORIDE 0.45% 500 ML IV SCH ×3 (10:45→22:58)
[2022-12-12 16:00] VITALS: BP 148/75
[2022-12-12 16:36] VITALS: BP 148/75
[2022-12-12 20:00] VITALS: BP 125/76
[2022-12-12] MEDS ORDERED: ATORVASTATIN CALCIUM 10MG TABLET PO SCH ×2 (21:00)
[2022-12-12] MEDS: LATANOPROST 0.005% OPHTH DROPS 2.5ML BOTHEYE SCH (22:16)
[2022-12-12] MEDS: CEFTRIAXONE 1,000 MG in DEXTROSE 5% WATER 50 ML IV SCH (22:58)
[2022-12-13] VITALS: BP 113/70
[2022-12-13 04:00] VITALS: BP 134/66
[2022-12-13 07:36] LABS: BASOPHILS % 0.6 % (0.0-2.0); EOSINOPHILS % 1.2 % (0.0-5.0); HEMATOCRIT. 31.4 % (36.0-48.0); LYMPHOCYTES % 17.7 % (20.0-50.0); MEAN CORPUSCULAR HEMOGLOBIN 33.4 pg (28.0-32.0); MEAN CORPUSCULAR VOLUME 95.2 fL (81.0-99.0); MEAN PLATELET VOLUME 9.4 fl (7.4-10.4); MONOCYTES % 12.8 % (2.0-8.0); NEUTROPHILS % 67.7 % (40.0-76.0); PLATELET 249 x1000/uL (130-400); RED BLOOD CELL COUNT 3.29 mill/uL (4.2-5.4); RED CELL DISTRIBUTION WIDTH 18.2 % (11.6-14.6)
[2022-12-13 08:00] VITALS: BP 146/68
[2022-12-13 08:20] LABS: CHLORIDE 108 mEq/L (98-107)
[2022-12-13 08:37] LABS: PHOSPHORUS 3.5 mg/dL (2.5-4.9); T4 FREE 0.97 ng/dL (0.76-1.46)
[2022-12-13] MEDS ORDERED: CEFTRIAXONE SODIUM 1 G/VIAL IM SCH (09:00)
[2022-12-13] MEDS: ENOXAPARIN 40MG/0.4ML SYR SUBCUT SCH (09:29)
[2022-12-13] MEDS: DORZOLAMIDE 2% OPHTH 10 ML BOTTLE BOTHEYE SCH ×2 (09:29→16:39)
[2022-12-13] MEDS: FAMOTIDINE 20MG TABLET PO SCH (09:30)
[2022-12-13] MEDS: CLOPIDOGREL 75MG TABLET PO SCH (09:30)
[2022-12-13] MEDS: EZETIMIBE 10MG TABLET PO SCH (09:30)
[2022-12-13] MEDS ORDERED: REGADENOSON 0.4 MG/5 ML IV NR (10:45)
[2022-12-13] MEDS ORDERED: METOPROLOL TARTRATE 25MG TABLET PO NR (11:00)
[2022-12-13] MEDS: SODIUM CHLORIDE 0.45% 500 ML IV SCH ×2 (11:20→16:47)
[2022-12-13] MEDS: BRIMONIDINE 0.2% OPHTH DROPS 5ML EACHEYE SCH ×2 (11:23→16:39)
[2022-12-13 12:00] VITALS: BP 125/54
[2022-12-13 16:00] VITALS: BP 127/60
[2022-12-13 20:00] VITALS: BP 117/55
[2022-12-13] MEDS: CEFTRIAXONE 1,000 MG in DEXTROSE 5% WATER 50 ML IV SCH (21:48)
[2022-12-13] MEDS: LATANOPROST 0.005% OPHTH DROPS 2.5ML BOTHEYE SCH (21:48)
[2022-12-13] MEDS: METOPROLOL TARTRATE 25MG TABLET PO SCH (21:49)
[2022-12-14] VITALS: BP 125/58
[2022-12-14 04:00] VITALS: BP 136/69
[2022-12-14 06:32] LABS: HEMOGLOBIN. 10.4 g/dL (12.0-16.0); MEAN CORPUSCULAR HEMOGLOBIN 33.2 pg (28.0-32.0); MEAN CORPUSCULAR VOLUME 95.8 fL (81.0-99.0); MEAN PLATELET VOLUME 9.3 fl (7.4-10.4); PLATELET 233 x1000/uL (130-400); RED BLOOD CELL COUNT 3.13 mill/uL (4.2-5.4)
[2022-12-14 06:39] LABS: CHLORIDE 107 mEq/L (98-107)
[2022-12-14 06:45] LABS: PHOSPHORUS 3.2 mg/dL (2.5-4.9)
[2022-12-14 08:00] VITALS: BP 135/57
[2022-12-14] MEDS: DORZOLAMIDE 2% OPHTH 10 ML BOTTLE BOTHEYE SCH (08:42)
[2022-12-14] MEDS: BRIMONIDINE 0.2% OPHTH DROPS 5ML EACHEYE SCH (08:42)
[2022-12-14] MEDS ORDERED: REGADENOSON 0.4 MG/5 ML IV ONE (09:53)
[2022-12-14] MEDS: EZETIMIBE 10MG TABLET PO SCH (11:33)
[2022-12-14] MEDS: ENOXAPARIN 40MG/0.4ML SYR SUBCUT SCH (11:33)
[2022-12-14] MEDS: CLOPIDOGREL 75MG TABLET PO SCH (11:33)
[2022-12-14] MEDS: FAMOTIDINE 20MG TABLET PO SCH (11:33)
[2022-12-14] MEDS: METOPROLOL TARTRATE 25MG TABLET PO SCH (11:34)
[2022-12-14 13:18] LABS: PLATELET ESTIMATE NORMAL
[2022-12-14] MEDS ORDERED: FURO20TA4 PO (15:05)
[2022-12-14] MEDS ORDERED: LISI2.5T47 PO (15:05)
[2022-12-14] MEDS ORDERED: METO25TA6 PO (15:05)
[2022-12-14 17:14] VITALS: BP 137/62
== END 2022-12-14 18:30 | disposition home or self-care (01) | DRG 70 ==
LOC: ER 11:47 → EDBEDREQ 14:41 → 7EST 17:45 → EDBEDREQ 17:49 → EDBEDREQTM 17:49 → ENRESERV 12-12 14:27
PROVIDERS: ADMIT Hospitalist; ATTEND Hospitalist
DX: G93.41 Metabolic encephalopathy (principal); I50.41 Acute combined systolic (congestive) and diastolic (congestive) heart failure; N39.0 Urinary tract infection, site not specified; G90.8 Other disorders of autonomic nervous system; I95.9 Hypotension, unspecified; R73.9 Hyperglycemia, unspecified; E78.5 Hyperlipidemia, unspecified; I25.5 Ischemic cardiomyopathy; E86.0 Dehydration; Z20.822 Contact with and (suspected) exposure to COVID-19; H26.9 Unspecified cataract; H40.9 Unspecified glaucoma; I25.10 Atherosclerotic heart disease of native coronary artery without angina pectoris; I11.0 Hypertensive heart disease with heart failure; J44.9 Chronic obstructive pulmonary disease, unspecified; I25.2 Old myocardial infarction; I34.0 Nonrheumatic mitral (valve) insufficiency; Z86.73 Personal history of transient ischemic attack (TIA), and cerebral infarction without residual deficits; Z90.710 Acquired absence of both cervix and uterus; Z88.8 Allergy status to other drugs, medicaments and biological substances; Z95.1 Presence of aortocoronary bypass graft; Z82.49 Family history of ischemic heart disease and other diseases of the circulatory system; T50.905A Adverse effect of unspecified drugs, medicaments and biological substances, initial encounter
CPT/HCPCS: 36415; 71045; 78452; 80048; 80053; 80061; 80307; 80329; 81003; 83036; 83605; 83735; 83880; 84100; 84145; 84439; 84443; 84484; 85025; 87426; 93005; 93017; 93306; 93880; 97162; 97166; 99285; A9500; J0696; J1650; J2785; J7060